=== PATIENT | male | born 1995 | race Caucasian/White ===

== ENCOUNTER 2019-07-28 12:51 | Emergency (ER) | payer SELFPAY ==
[~2019-07-28] VITALS: Ht 172.7 cm; Wt 73.0 kg
[2019-07-28] MEDS ORDERED: SODIUM CHLORIDE 0.9% 1,000 ML IV ONE (13:12)
[2019-07-28] MEDS ORDERED: ONDANSETRON HCL 4MG/2ML INJ IV ONE (13:15)
[2019-07-28] MEDS ORDERED: FAMOTIDINE 20MG/2ML VIAL IV ONE (13:15)
[2019-07-28] MEDS ORDERED: KETOROLAC 30MG/ML VIAL IV ONE (13:15)
[2019-07-28 13:57] LABS: BASOPHILS % 0.2 % (0.0-2.0); EOSINOPHILS % 1.2 % (0.0-5.0); HEMATOCRIT. 40.7 % (42.0-52.0); HEMOGLOBIN. 13.7 g/dL (14.0-18.0); LYMPHOCYTES % 12.8 % (20.0-50.0); MEAN CORPUSCULAR HEMOGLOBIN 28.6 pg (28.0-32.0); MEAN CORPUSCULAR VOLUME 85.2 fL (80.0-94.0); MEAN PLATELET VOLUME 9.8 fl (7.4-10.4); MONOCYTES % 4.7 % (2.0-8.0); NEUTROPHILS % 81.1 % (40.0-76.0); PLATELET 220 x1000/uL (130-400); RED BLOOD CELL COUNT 4.78 mill/uL (4.7-6.1); RED CELL DISTRIBUTION WIDTH 12.8 % (11.6-14.6)
[2019-07-28 14:00] LABS: CHLORIDE 104 mEq/L (98-107)
[2019-07-28 15:03] VITALS: BP 112/64
== END 2019-07-28 15:12 | disposition home or self-care (01) ==
LOC: ER 13:14
DX: F11.23 Opioid dependence with withdrawal (principal); R53.1 Weakness; M79.10 Myalgia, unspecified site; R11.0 Nausea; R10.13 Epigastric pain; F15.10 Other stimulant abuse, uncomplicated; F19.10 Other psychoactive substance abuse, uncomplicated
CPT/HCPCS: 36415; 80053; 85025; 96374; 96375; 99284; J1885; J2405; J3490; J7030

== ENCOUNTER 2020-05-10 02:08 | Emergency (ER) | payer OTHER, MEDICAID ==
[~2020-05-10] VITALS: Ht 177.8 cm; Wt 65.0 kg
[2020-05-10] MEDS ORDERED: LORAZEPAM 1MG TABLET PO ONE (02:30)
[2020-05-10] MEDS ORDERED: ARIPIPRAZOLE 5MG TABLET PO ONE (02:30)
[2020-05-10 02:49] VITALS: BP 120/67
[2020-05-10] MEDS ORDERED: ARIPIPRAZOLE 2MG TABLET PO NR (03:00)
[2020-05-10] MEDS ORDERED: ARIP2TAB3 MT (03:08)
== END 2020-05-10 04:00 | disposition home or self-care (01) ==
LOC: ER 02:08
DX: R44.0 Auditory hallucinations (principal); F17.290 Nicotine dependence, other tobacco product, uncomplicated; F11.10 Opioid abuse, uncomplicated; F10.229 Alcohol dependence with intoxication, unspecified; Y90.0 Blood alcohol level of less than 20 mg/100 ml
CPT/HCPCS: 99283